=== PATIENT | female | born 1945 | race Caucasian/White ===

== ENCOUNTER 2017-09-29 09:49 | Outpatient (CLI) | payer OTHER | END 2017-09-29 13:44 | disposition home or self-care (01) | LOC: LAB 09:49 | DX: D64.89 Other specified anemias (principal); M06.09 Rheumatoid arthritis without rheumatoid factor, multiple sites; I10 Essential (primary) hypertension; E78.4 Other hyperlipidemia; E03.8 Other specified hypothyroidism; M81.0 Age-related osteoporosis without current pathological fracture; N39.0 Urinary tract infection, site not specified ==

== ENCOUNTER 2017-09-29 09:57 | Outpatient (CLI) | payer OTHER | END 2017-09-29 13:42 | disposition home or self-care (01) | LOC: RAD 09:57 | DX: M19.021 Primary osteoarthritis, right elbow (principal); M19.022 Primary osteoarthritis, left elbow ==

== ENCOUNTER 2018-03-09 07:32 | Outpatient (CLI) | payer OTHER | END 2018-03-09 07:37 | disposition home or self-care (01) | LOC: LAB 07:32 | DX: E03.8 Other specified hypothyroidism (principal); E78.2 Mixed hyperlipidemia; I11.9 Hypertensive heart disease without heart failure; E56.8 Deficiency of other vitamins; N39.0 Urinary tract infection, site not specified; D50.8 Other iron deficiency anemias; Z12.11 Encounter for screening for malignant neoplasm of colon; E55.9 Vitamin D deficiency, unspecified; N19 Unspecified kidney failure; E11.9 Type 2 diabetes mellitus without complications; R80.8 Other proteinuria; C18.8 Malignant neoplasm of overlapping sites of colon; K92.1 Melena; D68.8 Other specified coagulation defects ==

== ENCOUNTER 2018-03-29 10:14 | Outpatient (CLI) | payer OTHER | END 2018-03-29 10:15 | disposition home or self-care (01) | LOC: LAB 10:14 | DX: D50.8 Other iron deficiency anemias (principal); D03.8 Melanoma in situ of other sites; E78.2 Mixed hyperlipidemia; I11.9 Hypertensive heart disease without heart failure; E56.8 Deficiency of other vitamins; N39.0 Urinary tract infection, site not specified; Z12.11 Encounter for screening for malignant neoplasm of colon; R19.5 Other fecal abnormalities; E55.9 Vitamin D deficiency, unspecified; N19 Unspecified kidney failure; E11.9 Type 2 diabetes mellitus without complications; R80.8 Other proteinuria; C18.9 Malignant neoplasm of colon, unspecified; K92.1 Melena ==

== ENCOUNTER → 2018-03-29 | Outpatient (CLI) | payer OTHER | END | disposition home or self-care (01) | LOC: RAD 11:46 | DX: I11.9 Hypertensive heart disease without heart failure (principal); R06.02 Shortness of breath ==

== ENCOUNTER 2018-11-22 09:04 | Outpatient (CLI) | payer OTHER | END 2018-11-22 09:40 | disposition home or self-care (01) | LOC: SONOGRAMA 09:04 | DX: R10.2 Pelvic and perineal pain (principal); R94.5 Abnormal results of liver function studies ==

== ENCOUNTER → 2019-04-07 | Outpatient (CLI) | payer OTHER | END | disposition home or self-care (01) | LOC: NUCLEAR 14:22 | DX: M81.0 Age-related osteoporosis without current pathological fracture (principal) ==